=== PATIENT | male | born 1975 | race Caucasian/White ===

== ENCOUNTER 2017-07-20 09:49 | Emergency (ER) | payer SELFPAY ==
[2017-07-20 10:05] VITALS: BP 159/102
--- NOTE | 2017-07-20 11:21 | UC ---
Shortness of Breath HPI - HPI Summary HPI Summary: 41 y/o male, smoker, no PMH, no medications, no recent ABX use, c/o sinus congestions, painful, congestion, productive cought more right sided, b/l ears "plugged", scrathcy throat, no GI upset. better at night, worse during the day - c/o fatigue, body aches as times. no recent illnesses. worsening over 2 weeks. NO SOB - History of Current Complaint Chief Complaint: UCRespiratory Stated Complaint: COUGH CONGESTION Time Seen by Provider: 07/20/17 11:00 Hx Obtained From: Patient Onset/Duration: Gradual Onset, Lasting Weeks Current Severity: Mild Associated Signs & Symptoms: Positive: Cough (Productive), Chest Pain w/Cough - right sided, Fever, Chills, Nasal Congestion - Allergy/Home Medications Allergies/Adverse Reactions: Allergies Allergy/AdvReac Type Severity Reaction Status Date / Time No Known Allergies Allergy Verified 07/20/17 10:05 PMH/Surg Hx/FS Hx/Imm Hx Previously Healthy: Yes - TOb use - Surgical History Surgical History: Yes Surgery Procedure, Year, and Place: 1996 - repair of left forearm, "Mongega" fracture - Social History Alcohol Use: None Alcohol Amount: quit Substance Use Type: None Smoking Status (MU): Heavy Every Day Tobacco Smoker Type: Cigarettes Amount Used/How Often: 1 ppd Household Exposure Type: Cigarettes Review of Systems Constitutional: Fever, Chills, Fatigue ENT: Sore Throat, Ear Ache, Nasal Discharge, Sinus Congestion Respiratory: Cough Is Patient Immunocompromised?: No All Other Systems Reviewed And Are Negative: Yes Physical Exam Triage Information Reviewed: Yes Appearance: No Pain Distress, Well-Nourished, Ill-Appearing - mild Vital Signs: Initial Vital Signs Temp 98.7 F 07/20/17 10:02 Pulse 111 07/20/17 10:02 Resp 18 07/20/17 10:02 BP 159/102 07/20/17 10:02 Pulse Ox 99 07/20/17 10:02 Vital Signs Reviewed: Yes Eyes: Positive: Conjunctiva Clear ENT: Positive: Pharyngeal erythema - mild, Nasal drainage, TM dull, TM red - minimal b/l + fluid behind TMs, Sinus tenderness, Uvula midline Neck: Positive: Supple, Nontender, Enlarged Nodes @ - b/l Respiratory: Positive: Chest non-tender, Lungs clear, Normal breath sounds, No accessory muscle use, Crackles, Wheezing - right lower lobes. Negative: Respiratory distress, Decreased breath sounds Cardiovascular: Positive: RRR, No Murmur, Pulses Normal Abdomen Description: Positive: Nontender, No Organomegaly, Soft. Negative: CVA Tenderness (R), CVA Tenderness (L) Psychological Exam: Normal Skin Exam: Normal Shortness of Breath Dx - Course Course Of Treatment: Patient without insurance, declined x-ray, likely right sided PNA, abx, follow up within 2-3 days if no improvement/ worsening of symptoms. - Differential Dx/Diagnosis Provider Diagnoses: CAP Discharge - Sign-Out/Discharge Documenting (check all that apply): Discharge - Discharge Plan Condition: Good Disposition: HOME Prescriptions: Amoxicillin PO (*) [Amoxicillin 500 MG CAP*] 2 cap PO TID 10 Days #60 cap Patient Education Materials: Community Acquired Pneumonia (ED) Forms: *Work Release Referrals: No Primary Care Phys,NOPCP [Primary Care Provider] - Additional Instructions: - Increase flid intake - Take antibiotics as directed - return if no improvement within 2-3 days - return for worsening symptoms- fever > 102, shortness of breath - Billing Disposition and Condition Condition: GOOD Disposition: HOME
== END 2017-07-20 11:40 | disposition home or self-care (01) ==
LOC: UCEAST 09:49
DX: J18.9 Pneumonia, unspecified organism (principal); F17.210 Nicotine dependence, cigarettes, uncomplicated
CPT/HCPCS: 99212; G0463

== ENCOUNTER 2017-08-06 08:47 | Emergency (ER) | payer SELFPAY ==
[2017-08-06 08:58] VITALS: BP 158/97
--- NOTE | 2017-08-06 09:33 | ED ---
HPI Chest Pain - HPI Summary HPI Summary: 41 yo WM h/o HTN c/o epigastric pain associated with nausea and diaphoresis x 1 days, different form GERD/heartburn per pt. - History of Current Complaint Chief Complaint: UCGI Time Seen by Provider: 08/06/17 09:28 Hx Obtained From: Patient Hx From Patient Unobtainable Due To: Other Onset/Duration: Started Hours Ago Timing: Constant Initial Severity: Moderate Current Severity: Moderate Pain Intensity: 0 Chest Pain Location: Lower Sternal Chest Pain Radiates: No Chest Pain Radiates To:: Epigastric - Allergy/Home Medications Allergies/Adverse Reactions: Allergies Allergy/AdvReac Type Severity Reaction Status Date / Time No Known Allergies Allergy Verified 08/06/17 08:58 PMH/Surg Hx/FS Hx/Imm Hx Previously Healthy: Yes Endocrine/Hematology History: Denies: Hx Diabetes, Hx Thyroid Disease Cardiovascular History: Reports: Hx Hypercholesterolemia, Hx Hypertension Denies: Hx Pacemaker/ICD Respiratory History: Denies: Hx Asthma, Hx Chronic Obstructive Pulmonary Disease (COPD) GI History: Denies: Hx Ulcer History: Denies: Hx Renal Disease Neurological History: Denies: Hx Dementia, Hx Seizures Psychiatric History: Denies: Hx Substance Abuse - Surgical History Surgery Procedure, Year, and Place: 1996 - repair of left forearm, "Mongega" fracture - Immunization History Date of Tetanus Vaccine: unknown Infectious Disease History: No Infectious Disease History: Denies: Hx Clostridium Difficile, Hx Hepatitis, Hx Human Immunodeficiency Virus (HIV), Hx of Known/Suspected MRSA, Hx Shingles, Hx Tuberculosis, Traveled Outside the [place] in Last 30 Days - Social History Alcohol Use: None Alcohol Amount: quit Substance Use Type: Reports: None Smoking Status (MU): Heavy Every Day Tobacco Smoker Type: Cigarettes Amount Used/How Often: 1 ppd Review of Systems Constitutional: Negative Eyes: Negative ENT: Negative Positive: Chest Pain Respiratory: Negative Gastrointestinal: Negative Genitourinary: Negative Musculoskeletal: Negative Skin: Negative Neurological: Negative Psychological: Normal All Other Systems Reviewed And Are Negative: Yes Physical Exam Triage Information Reviewed: Yes Vital Signs On Initial Exam: Initial Vitals Temp Pulse Resp BP Pulse Ox 37.6 C 110 18 158/97 100 08/06/17 08:53 08/06/17 08:53 08/06/17 08:53 08/06/17 08:53 08/06/17 08:53 Vital Signs Reviewed: Yes Appearance: Positive: Well-Appearing Skin: Positive: Warm Head/Face: Positive: Normal Head/Face Inspection Eyes: Positive: Normal ENT: Positive: Normal ENT inspection Neck: Positive: Supple Respiratory/Lung Sounds: Positive: Clear to Auscultation Cardiovascular: Positive: Normal, Tachycardia, S1, S2 Abdomen Description: Positive: Nontender Bowel Sounds: Positive: Other - Abd dull on percussion Musculoskeletal: Positive: Normal Neurological: Positive: Normal Psychiatric: Positive: Normal AVPU Assessment: Alert Diagnostics - Vital Signs Vital Signs Temp Pulse Resp BP Pulse Ox 08/06/17 08:53 37.6 C 110 18 158/97 100 - Laboratory Lab Statement: Any lab studies that have been ordered have been reviewed, and results considered in the medical decision making process. Chest Pain Course/Dx - Course Course Of Treatment: EKG without STT changes, XR of abd reveals moderate degree of fecal stasis throughout the colon with bowel gas pattern, pt states he has BM every Other day but possibly he has moderate to severe constipation and therefore nausea. Prescribed zofran ODT and mag citrate. DDX includes constipation GERD and cardiac CP, so advised pt to go to ER if epigastrin pain continues after tx of constipation - Diagnoses Provider Diagnoses: Epigastric heaviness, Constipation, GERD (gastroesophageal reflux disease) - Provider Notifications Admit/Transition Orders Completed By ED Provider: Yes Discharge - Sign-Out/Discharge Documenting (check all that apply): Discharge/Admit/Transfer - Discharge Plan Condition: Stable Disposition: HOME Prescriptions: Magnesium CITRATE* [Citrate of Magnesia*] 300 ml PO ONCE #1 btl Ondansetron ODT TAB* [Zofran 4 MG Odt TAB*] 4 mg PO Q6H PRN 5 Days #20 tab.odt PRN Reason: Nausea Patient Education Materials: Acute Nausea and Vomiting (ED), Gastroesophageal Reflux Disease (ED), Constipation (ED) Referrals: No Primary Care Phys,NOPCP [Primary Care Provider] - - Billing Disposition and Condition Condition: STABLE Disposition: HOME
[2017-08-06] MEDS ORDERED: Ondansetron ODT TAB* 4 MG PO ONE (09:42)
--- NOTE | 2017-08-06 10:17 | RAD ---
INDICATION: Vomiting COMPARISON: None TECHNIQUE: Supine and upright views of the abdomen were obtained. FINDINGS: The small bowel and colon appear nondistended. No free intraperitoneal air is seen. No grossly abnormal or pathologic appearing calcifications are noted. Visualized bones are within normal limits for the patient's age. IMPRESSION: Normal abdominal radiograph.
== END 2017-08-06 10:37 | disposition home or self-care (01) ==
LOC: UCEAST 08:47
DX: R10.816 Epigastric abdominal tenderness (principal); K59.00 Constipation, unspecified; K21.9 Gastro-esophageal reflux disease without esophagitis; E78.00 Pure hypercholesterolemia, unspecified; I10 Essential (primary) hypertension; F17.210 Nicotine dependence, cigarettes, uncomplicated
CPT/HCPCS: 74019; 93005; 99212; A9270-GY; G0463

== ENCOUNTER → 2017-09-29 19:24 | Emergency (ER) | payer SELFPAY ==
[~2017-09-29 19:24] MED LIST: Ketorolac INJ* 30 MG/ML 1 ML VIAL IM ONE; Metoclopramide IV* 5 MG/ML 2 ML VIAL ONE
[2017-09-29 19:32] VITALS: BP 154/106
--- NOTE | 2017-09-29 19:51 | UC ---
Head Injury HPI - HPI Summary HPI Summary: 42 year old male no significant pmhx here with complaint of headache for 5 days. 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 He reports pain at the back of his head along with nausea. No loc Daily headache, partially improved with ibuprofen. No motor or sensor deficit. No photophobia or phonophobia. - History Of Current Complaint Chief Complaint: UCHeadInjury Stated Complaint: HEAD INJURY Time Seen by Provider: 09/29/17 19:37 Onset/Duration: Sudden Onset Severity Currently: Mild Pain Intensity: 7 Character: Sharp - Allergies/Home Medications Allergies/Adverse Reactions: Allergies Allergy/AdvReac Type Severity Reaction Status Date / Time No Known Allergies Allergy Verified 09/29/17 19:33 Home Medications: Home Medications Ibuprofen TAB* [Advil TAB*] 1,600 mg PO ONCE 09/29/17 [History Confirmed ] PMH/Surg Hx/FS Hx/Imm Hx Previously Healthy: Yes - Surgical History Surgical History: Yes Surgery Procedure, Year, and Place: 1996 - repair of left forearm, "Mongega" fracture - Social History Alcohol Use: Occasionally Alcohol Amount: quit Substance Use Type: None Smoking Status (MU): Heavy Every Day Tobacco Smoker Type: Cigarettes Amount Used/How Often: 1 ppd Household Exposure Type: Cigarettes Review of Systems Constitutional: Negative Skin: Negative Eyes: Negative ENT: Negative Respiratory: Negative Cardiovascular: Negative Gastrointestinal: Negative Genitourinary: Negative Motor: Negative Neurovascular: Negative Musculoskeletal: Negative Neurological: Headache Psychological: Negative Is Patient Immunocompromised?: No All Other Systems Reviewed And Are Negative: Yes Physical Exam Triage Information Reviewed: Yes Vital Signs: Initial Vital Signs Temp 37.1 C 09/29/17 19:29 Pulse 100 09/29/17 19:29 Resp 12 09/29/17 19:29 BP 154/106 09/29/17 19:29 Pulse Ox 100 09/29/17 19:29 Vital Signs Reviewed: Yes ENT Exam: Normal Dental Exam: Normal Neck exam: Normal Cardiovascular Exam: Normal Abdominal Exam: Normal Musculoskeletal Exam: Normal Neurological Exam: Normal, Other - nml FTN, no nystagmus, no sensory or motor defict CN II-XII nml Psychological Exam: Normal Skin Exam: Normal Head Injury Course/Dx - Differential Dx/Diagnosis Differential Diagnosis/HQI/PQRI: Concussion Without LOC Provider Diagnoses: Concussion Discharge - Sign-Out/Discharge Documenting (check all that apply): Discharge/Admit/Transfer - Discharge Plan Condition: Good Disposition: HOME Prescriptions: Metoclopramide HCl [Reglan] 5 mg PO BID PRN #20 tab PRN Reason: Nausea Naproxen [Naproxen 250 mg tab] 250 mg PO BID PRN #30 tablet PRN Reason: Headache Patient Education Materials: Concussion (ED) Referrals: Joelle Jung MD [Medical Doctor] - Additional Instructions: Physical activity as tolerated - Billing Disposition and Condition Condition: GOOD Disposition: Home
== END | disposition home or self-care (01) ==
LOC: UCEAST 19:24
DX: S06.0X0A Concussion without loss of consciousness, initial encounter (principal); W22.8XXA Striking against or struck by other objects, initial encounter; Y93.89 Activity, other specified; Y92.9 Unspecified place or not applicable; F17.210 Nicotine dependence, cigarettes, uncomplicated
CPT/HCPCS: 99212; G0463; J1885; J2765